=== PATIENT | male | born 1985 | race Caucasian/White ===

== ENCOUNTER 2021-02-26 22:57 | Emergency (ER) | payer SELFPAY ==
[~2021-02-26] VITALS: Ht 175.2 cm; Wt 86.0 kg
--- NOTE | 2021-02-26 23:16 | ED EENT ---
History of Present Illness General Chief Complaint: Dental Problems/Pain Stated Complaint: ABCESS TOOTH Source: patient Exam Limitations: no limitations History of Present Illness Date Seen by Provider: February 26, 2021 Time Seen by Provider: 23:05 Initial Comments Patient is a 35-year-old male who presents to the emergency department today with a chief complaint of left lower dental pain. Patient states he started having pain approximately 1 hour prior to arrival. He is taken Tylenol and ibuprofen done salt water rinses and mouth wash rinses trying to alleviate the pain with no relief. He denies any fevers or chills. No drainage from the area. He denies chest pain shortness of breath, abdominal pain nausea or vomiting. Patient states he feels "lightheaded" secondary to the pain. He states he has a history of "brittle teeth". He does not have a local dentist. All other review of systems reviewed and negative except as stated. Timing/Duration: abrupt Severity: severe Location: dental Prearrival Treatment: over the counter meds Associated Symptoms: denies symptoms Allergies and Home Medications Allergies Coded Allergies: No Known Drug Allergies (Unverified , 02/26/21) Patient Home Medication List Home Medication List Reviewed: Yes Review of Systems Review of Systems Constitutional: see HPI Eyes: No Symptoms Reported Nose: no symptoms reported Mouth: swelling, other (Dental pain) Throat: no symptoms reported Respiratory: no symptoms reported Cardiovascular: no symptoms reported Gastrointestinal: no symptoms reported All Other Systems Reviewed Negative Unless Noted: Yes Physical Exam Vital Signs Vital Signs - First Documented 02/26/21 23:13 Temp 36.8 Pulse 79 Resp 20 B/P (MAP) 151/97 (115) Pulse Ox 100 O2 Delivery Room Air Height, Weight, BMI Height: '" Weight: lbs. oz. kg; BMI Method: General Appearance: WD/WN, no apparent distress Eyes: bilateral eye normal inspection, bilateral eye PERRL, bilateral eye EOMI Mouth/Throat: normal mouth inspection, dental tenderness, other (Extensive carious, fractured and necrotic teeth. Patient has molars and premolars on the left lower jaw that are fractured and carious. Surrounding gingival edema and erythema. No drainage. No fluctuance.; Premolar is tender to touch as is the first molar on the left lower jaw.) Cardiovascular: regular rate, rhythm, no murmur Respiratory: lungs clear, normal breath sounds, no respiratory distress Neurologic/Psychiatric: alert, normal mood/affect Skin: normal color, warm/dry Procedures/Interventions Dental Procedures: Progress/Results/Core Measures Results/Orders My Orders Orders - ADRIENNE MANCUSO MD Lidocaine 1% Inj 20 Ml (Xylocaine 1% Inj (02/26/21 23:30) Vital Signs/I&O 02/26/21 23:13 Temp 36.8 Pulse 79 Resp 20 B/P (MAP) 151/97 (115) Pulse Ox 100 O2 Delivery Room Air Progress Progress Note : Time: 23:15 Progress Note 1% lidocaine, 2 cc used to inject to the buccal surface of the left lower premolar. Patient achieved good anesthesia with this. He is given hydrocodone for pain and a take-home pack. He is prescribed Pen-Vee K for the next 10 days. He is counseled on oral hygiene. Departure Impression Primary Impression: Pain due to dental caries Disposition: HOME, SELF-CARE Condition: Stable Departure-Patient Inst. Decision time for Depature: 23:14 Referrals: NO,LOCAL PHYSICIAN (PCP/Family) Primary Care Physician Patient Instructions: Tooth Decay, Adult (DC) Add. Discharge Instructions: Continue to rinse with half peroxide half water 3 times a day. Take the antibiotics as prescribed. I have given you some hydrocodone to last you for the next 24 hours. You need to see a dentist. I have given you referral information for [facility]. Take [id number] ibuprofen, 3 pills, 600 mg with food every 8 hours as needed for pain. Come back to the emergency room for any increased swelling, fevers over 101, drainage from the area or other emergent concerning symptoms. Scripts Penicillin V Potassium (Penicillin V Potassium) 500 Mg Tablet 500 MG PO Q6H, #28 TAB Prov: ADRIENNE MANCUSO MD 02/26/21 ADRIENNE MANCUSO MD February 26, 2021 23:16
[2021-02-26] MEDS ORDERED: PENI500T PO (23:27)
[2021-02-26] MEDS ORDERED: LIDOCAINE 1% INJ 20 ML 20 ML VIAL INJ ONE (23:30)
[2021-02-26 23:43] VITALS: BP 151/97
== END 2021-02-26 23:42 | disposition home or self-care (01) ==
LOC: EDUNIT# 22:57 → ER 22:59
DX: K02.9 Dental caries, unspecified (principal)
CPT/HCPCS: 41800